=== PATIENT | female | born 1955 | race Caucasian/White ===

== ENCOUNTER → 2016-11-26 | Outpatient (CLI) | payer OTHER ==
[~2016-11-26] MED LIST: BARIUM SULFATE 60% 355 ML SUSP PO ONE; BARIUM SULFATE 98% 135 ML SUSP PO ONE
--- NOTE | 2016-11-26 12:02 | RAD ---
Indication right upper quadrant pain for several months. In anticipation of an upper GI and small bowel follow-through a preliminary film of the abdomen was obtained. Clips are seen in the gallbladder fossa. The abdominal gas pattern is normal. Postoperative changes in the lower lumbar spine are noted. The patient reports a history of gastric bypass. A limited amount of fizzy material was administered. The examination was performed in double contrast flexion. 10 spot fluoroscopic images were obtained. Fluoroscopy time associated with the examination was 2.2 minutes. The initiation of swallowing was normal. No esophageal strictures, erosions or mucosal abnormalities are seen. Gastrojejunostomy is noted and is widely patent. Jejunal loops appeared normal. Ileal loops also appeared normal. Transit time to the large bowel was relatively fast high, i.e. aproximately 15 minutes IMPRESSION: Gastrojejunostomy. No definite abnormality seen. Relatively rapid transit noted to the large bowel
== END | disposition home or self-care (01) ==
LOC: DXRAD 08:28
PROVIDERS: ATTEND Internal Medicine Gastroenterology
DX: R10.11 Right upper quadrant pain (principal)
CPT/HCPCS: 74249

== ENCOUNTER → 2017-10-21 | Outpatient (CLI) | payer MEDICARE ==
--- NOTE | 2017-10-23 15:08 | RAD ---
DATE: 10/21/2017 EXAM: MAMMO RIC SCREENING BILATERAL HISTORY: Screening Mammogram COMPARISON: Outside screening mammogram 10/15/2015, 04/21/2013 This study was interpreted with the benefit of Computerized Aided Detection (CAD). The breast parenchyma shows scattered fibroglandular densities. Breast parenchyma level B. FINDINGS: Bilateral digital 2-D and 3-D tomosynthesis CC and MLO views. There are 2 adjacent groups of microcalcifications in the superior left breast, middle depth at the 12:00 and 1:00 positions. There is a stable circumscribed mass in the lower outer right breast since 2011, consider benign. No suspicious mass, calcification or architectural distortion in the right breast. IMPRESSION: Slight increase in two groups of microcalcifications in the superior left breast. Diagnostic left breast mammogram to include magnification CC and MLO views and true ML view. BI-RADS CATEGORY: 0 INCOMPLETE: NEEDS ADDITIONAL IMAGING EVALUATION AND/OR PRIOR MAMMOGRAMS FOR COMPARISON. RECOMMENDED FOLLOW-UP: ADD ADDITIONAL IMAGING PQRS compliance statement: Patient information was entered into a reminder system with a target due date for the next mammogram. Mammography is a sensitive method for finding small breast cancers, but it does not detect them all and is not a substitute for careful clinical examination. A negative mammogram does not negate a clinically suspicious finding and should not result in delay in biopsying a clinically suspicious abnormality. "Our facility is accredited by the [employer] Mammography Program."
== END | disposition home or self-care (01) ==
LOC: MAMMO 12:39
PROVIDERS: ATTEND Family Medicine
DX: Z12.31 Encounter for screening mammogram for malignant neoplasm of breast (principal)
CPT/HCPCS: 77063; 77067

== ENCOUNTER → 2017-11-02 | Outpatient (CLI) | payer MEDICARE ==
--- NOTE | 2017-11-02 14:21 | RAD ---
DATE: 11/02/2017 EXAM: DIGITAL SCREEN LT W/CAD HISTORY: Microcalcifications left breast COMPARISON: 10/15/2015 This study was interpreted with the benefit of Computerized Aided Detection (CAD). FINDINGS: Breast Density: HETERO The breast parenchyma Is heterogeneouslyy dense, which could reduce sensitivity of mammography. Breast parenchyma level C. Tiny foci of microcalcification is identified in the left breast grossly more or less similar to prior exam of 2016.. IMPRESSION: Probably benign findings. Recommend left breast diagnostic mammogram in 6 months BI-RADS CATEGORY: 3 PROBABLE BENIGN-SHORT TERM F/U RECOMMENDED FOLLOW-UP: 6M 6 MONTH FOLLOW-UP PQRS compliance statement: Patient information was entered into a reminder system with a target due date 05/02/2019 for the next mammogram. Mammography is a sensitive method for finding small breast cancers, but it does not detect them all and is not a substitute for careful clinical examination. A negative mammogram does not negate a clinically suspicious finding and should not result in delay in biopsying a clinically suspicious abnormality. "Our facility is accredited by the [employer] Mammography Program."
== END | disposition home or self-care (01) ==
LOC: MAMMO 13:50
PROVIDERS: ATTEND Family Medicine
DX: Z12.31 Encounter for screening mammogram for malignant neoplasm of breast (principal); R92.8 Other abnormal and inconclusive findings on diagnostic imaging of breast
CPT/HCPCS: 77067

== ENCOUNTER → 2017-11-02 | Outpatient (CLI) | payer MEDICARE ==
--- NOTE | 2017-11-02 13:03 | RAD ---
Examination: 3 views of the left knee History: History of left knee pain Comparison: None available Findings: The alignment of the knee joint grossly appears unremarkable. There is moderate joint space loss identified in the medial, lateral, patellofemoral compartments. There is no acute fracture or dislocation identified. Impression: Moderate tricompartmental degenerative changes.
--- NOTE | 2017-11-02 13:21 | RAD ---
Pelvis with left hip, 3 views, 11/02/2017: History: Left hip pain, osteoarthritis The hip joint space are well preserved with only mild marginal spurring. No fracture or dislocation is identified. There is minimal spurring at the symphysis pubis. Surgical sutures are present in the pelvis bilaterally. There appear to be laminectomy changes in the lower lumbar spine. IMPRESSION: No acute pelvic or left hip abnormality is detected.
== END | disposition home or self-care (01) ==
LOC: DXRAD 11:48
PROVIDERS: ATTEND Orthopaedic Surgery Sports Medicine
DX: M17.12 Unilateral primary osteoarthritis, left knee (principal); M16.12 Unilateral primary osteoarthritis, left hip
CPT/HCPCS: 73502; 73562

== ENCOUNTER 2018-01-16 01:01 | Emergency (ER) | payer MEDICARE ==
[~2018-01-16] VITALS: Ht 160 cm; Wt 59.4 kg
[2018-01-16] MEDS: IV NORMAL SALINE 1,000ML 1,000 ML IV SCH ×2 (02:15→02:59)
[2018-01-16 02:20] LABS: WHITE BLOOD COUNT 6.1 x10^3/uL (4.0-11.0)
[2018-01-16 02:21] LABS: LYMPH # 1.8 x10^3/uL (1.0-4.8); LYMPH % 30 % (24-48); MONO % 5 % (0-9); NEUT % 65 % (31-73)
[2018-01-16 02:22] LABS: HEMATOCRIT 28.1 % (36.0-47.0); HEMOGLOBIN 9.1 g/dL (12.0-15.5); MEAN CORPUSCULAR HEMOGLOBIN 32 pg (25-35); MEAN CORPUSCULAR HGB CONC 33 g/dL (31-37); MEAN CORPUSCULAR VOLUME 97 fL (79-100); MONO # 0.3 x10^3/uL (0.0-1.1); NEUT # 3.9 x10^3uL (1.8-7.7); PLATELET COUNT 214 x10^3/uL (140-400); RED BLOOD COUNT 2.89 x10^6/uL (3.50-5.40); RED CELL DISTRIBUTION WIDTH 13.7 % (11.5-14.5)
[2018-01-16 02:24] LABS: CREATININE 0.9 mg/dL (0.6-1.0); GFR 63.2; POTASSIUM 4.1 mmol/L (3.5-5.1)
[2018-01-16] MEDS ORDERED: PANTOPRAZOLE IV 40 MG VIAL. ONE (02:55)
[2018-01-16] MEDS ORDERED: IV NORMAL SALINE 1,000ML 1,000 ML IV ONE ×2 (03:00→05:00)
[2018-01-16] MEDS ORDERED: PANTOPRAZOLE IV 40 MG VIAL. IVP ONE (03:15)
--- NOTE | 2018-01-16 03:22 | PHYS DOC ---
Adult General Chief Complaint Chief Complaint: RECTAL BLEED HPI HPI 62-year-old female with a history of anxiety and depression as well as irritable bowel syndrome and gastric bypass about 2 years ago. She now presents the emergency department complaining of dark red blood per rectum this evening. Patient describes the she experienced multiple episodes of loose stool which are dark red. She feels lightheaded and her states she looks pale compared with her baseline. Patient has no history of coagulopathy nor does she take anticoagulants. She has never had an upper or lower GI bleed before nor has she had an upper GI scope or colonoscopy. Patient denies chest pain or shortness of breath but she does describe that she felt lightheaded with standing and feels generally weak. Patient does not take NSAIDs or aspirin and has never been known to have peptic ulcer Review of Systems Review of Systems Constitutional: Denies fever or chills [] Eyes: Denies change in visual acuity, redness, or eye pain [] HENT: Denies nasal congestion or sore throat [] Respiratory: Denies cough or shortness of breath [] Cardiovascular: No additional information not addressed in HPI [] GI: Denies abdominal pain, nausea, vomiting, bloody stools or diarrhea [] : Denies dysuria or hematuria [] Musculoskeletal: Denies back pain or joint pain [] Integument: Denies rash or skin lesions [] Neurologic: Denies headache, focal weakness or sensory changes [] Endocrine: Denies polyuria or polydipsia [] All other systems were reviewed and found to be within normal limits, except as documented in this note. Current Medications Current Medications Current Medications Medications (Trade) Dose Ordered Sig/Carlos Start Time Stop Time Status Last Admin Dose Admin Pantoprazole Sodium (Protonix Vial) 40 mg STK-MED ONCE 01/16/18 02:55 01/16/18 02:56 DC Sodium Chloride 1,000 ml @ 1,000 mls/hr 1X ONCE 01/16/18 03:00 01/16/18 03:59 Allergies Allergies Allergies Coded Allergies Type Severity Reaction Last Updated Verified Penicillins Allergy Intermediate 01/16/18 Yes codeine Allergy Unknown 01/16/18 Yes Uncoded Allergies Type Severity Reaction Last Updated Verified dexatrol Allergy Unknown 01/16/18 Physical Exam Physical Exam Constitutional: Pale appearing 62-year-old female alert to be indicative cooperative and appropriate no acute distress. Her mucous membranes are moist. She has no tachycardia or hypotension. Clear lungs regular rate and rhythm. Benign abdomen with no focal tenderness mass distention megaly or skin changes. Normal bowel sounds. Extremities unremarkable with good cap refill. Patient does have subconjunctival pallor as well. HENT: Normocephalic, atraumatic, bilateral external ears normal, oropharynx moist, no oral exudates, nose normal. [] Eyes: PERRLA, EOMI, conjunctiva pale, no discharge. [] Neck: Normal range of motion, no tenderness, supple, no stridor. [] Cardiovascular:Heart rate regular rhythm, no murmur [] Lungs & Thorax: Bilateral breath sounds clear to auscultation [] Abdomen: Bowel sounds normal, soft, no tenderness, no masses, no pulsatile masses. [] Skin: Pale, Warm, dry, no erythema, no rash. [] Back: No tenderness, no CVA tenderness. [] Extremities: No tenderness, no cyanosis, no clubbing, ROM intact, no edema. [] Neurologic: Alert and oriented X 3, normal motor function, normal sensory function, no focal deficits noted. [] Psychologic: Patient has a mildly depressed mood and flat affect Current Patient Data Lab Results Laboratory Tests Test 01/16/18 01:45 White Blood Count 6.1 x10^3/uL (4.0-11.0) Red Blood Count 2.89 x10^6/uL (3.50-5.40) L Hemoglobin 9.1 g/dL (12.0-15.5) L Hematocrit 28.1 % (36.0-47.0) L Mean Corpuscular Volume 97 fL (79-100) Mean Corpuscular Hemoglobin 32 pg (25-35) Mean Corpuscular Hemoglobin Concent 33 g/dL (31-37) Red Cell Distribution Width 13.7 % (11.5-14.5) Platelet Count 214 x10^3/uL (140-400) Neutrophils (%) (Auto) 65 % (31-73) Lymphocytes (%) (Auto) 30 % (24-48) Monocytes (%) (Auto) 5 % (0-9) Neutrophils # (Auto) 3.9 x10^3uL (1.8-7.7) Lymphocytes # (Auto) 1.8 x10^3/uL (1.0-4.8) Monocytes # (Auto) 0.3 x10^3/uL (0.0-1.1) Prothrombin Time 10.5 SEC (9.4-11.4) Prothrombin Time INR 1.0 (0.9-1.1) PTT 22 SEC (23-33) L Sodium Level 142 mmol/L (136-145) Potassium Level 4.1 mmol/L (3.5-5.1) Chloride Level 105 mmol/L (98-107) Carbon Dioxide Level 28 mmol/L (21-32) Anion Gap 9 (6-14) Blood Urea Nitrogen 27 mg/dL (7-20) H Creatinine 0.9 mg/dL (0.6-1.0) Estimated GFR (Cockcroft-Gault) 63.2 Glucose Level 175 mg/dL (70-99) H Calcium Level 8.0 mg/dL (8.5-10.1) L EKG EKG [] Radiology/Procedures Radiology/Procedures Critical care 38 minutes Critical Care: The high probability of sudden, clinically significant deterioration in the patient's condition required the highest level of my preparedness to intervene urgently. The services I provided to this patient were to treat and/or prevent clinically significant deterioration. Services included the following: chart data review, reviewing nursing notes and/or old charts, documentation time, software developer consultant collaboration regarding findings and treatment options, medication orders and management, direct patient care, vital sign assessments and ordering, interpreting and reviewing diagnostic studies/ lab tests. Aggregate critical care time includes only time during which I was engaged in work directly related to the patient's care, as described above, whether at the bedside or elsewhere in the Emergency Department. It did not include time spent performing other reported procedures or the services of nurses or physician assistants.[] Course & Med Decision Making Course & Med Decision Making Pertinent Labs and Imaging studies reviewed. (See chart for details) Signs and symptoms consistent with GI bleed with anemia and pallor. Patient is hemodynamically stable with no tachycardia or hypotension. Patient is not on a beta marc. 2 large-bore IVs established and patient given 2 L of normal saline IV fluid bolus. Blood draw prior to hydration with hemoglobin of 9.1. Anticipate equilibration and worsening anemia with adequate mandaeism of volume. Case discussed with patient's primary care physician Dr. Kincaid who is aware the history and findings and requests transfer to [facility] for admission to the hospitalist service. Case discussed with Dr. May, hospitalist on-call at [place], who accepts the patient for inpatient admission to a telemetry bed to her service. She will address continued care, further treatment, and consultative services as needed Dragon Disclaimer Dragon Disclaimer This electronic medical record was generated, in whole or in part, using a voice recognition dictation system. Departure Departure: Impression: Primary Impression: GI bleeding Additional Impression: Anemia Disposition: XFER SHT-COUNTS INCLUDE 234 BEDS AT THE [facility] Condition: GUARDED Referrals: TOÑO KINCAID MD (PCP) Problem Qualifiers KELY BE MD January 16, 2018 03:22
[2018-01-16] MEDS ORDERED: PENICILLIN V K 250 MG TABLET. ONE (03:32)
[2018-01-16] MEDS ORDERED: PENICILLIN V K 250 MG TABLET. PO ONE (04:00)
[2018-01-16 04:16] LABS: HEMOGLOBIN ISTAT 7.5 gm/dL; POTASSIUM ISTAT 4.9 mmol/L (3.5-5.0)
[2018-01-16 04:25] VITALS: BP 112/68
[2018-01-16] MEDS ORDERED: ONDANSETRON ODT 4 MG TAB.RAPDIS PO ONE (05:00)
[2018-01-16 06:03] LABS: % BANDS 1 % (0-9); % BASOS 0 % (0-3); % EOS 3 % (0-5); % LYMPHS 27 % (24-48); % MONOS 7 % (0-10); % SEGS 62 % (35-66)
[2018-01-16 06:04] LABS: PLT ESTIMATE ADEQUATE (ADEQUATE)
== END 2018-01-16 04:38 | disposition short-term general hospital (02) ==
LOC: ER 01:01
DX: K92.2 Gastrointestinal hemorrhage, unspecified (principal); D64.9 Anemia, unspecified; F32.9 Major depressive disorder, single episode, unspecified; K58.9 Irritable bowel syndrome, unspecified; F41.9 Anxiety disorder, unspecified; Z98.84 Bariatric surgery status; Z88.0 Allergy status to penicillin; Z88.5 Allergy status to narcotic agent
CPT/HCPCS: 36415; 80047; 80048; 85007; 85025; 85610; 85730; 86900; 86901; 96374; 99291; C9113; J7030

== ENCOUNTER → 2018-01-29 | Outpatient (CLI) | payer MEDICARE ==
[2018-01-16 04:25] VITALS: BP 112/68
[~2018-01-29] MED LIST changes: -BARIUM SULFATE 60% 355 ML SUSP PO ONE; -BARIUM SULFATE 98% 135 ML SUSP PO ONE; +IOHEXOL 240 MG/ML 50ML VIAL. ONE; +IOHEXOL 300 MG/ML 75 ML VIAL. IV ONE
--- NOTE | 2018-01-29 14:11 | RAD ---
CT Abdomen and Pelvis With Intravenous Contrast: History: Episode 2 weeks ago of rectal bleeding for 7 days. Comparison: CT abdomen pelvis November 11, 2016. Technique: After administration of oral and intravenous contrast, 75 mL Omnipaque-300, CT of the abdomen and pelvis was performed. Exposure: One or more of the following individualized dose reduction techniques were utilized for this examination: 1. Automated exposure control 2. Adjustment of the mA and/or kV according to patient size 3. Use of iterative reconstruction technique Findings: Left hepatic lobe demonstrates cyst measuring 1.4 cm. Calcified splenic granulomata are present. Pancreas and bilateral adrenal glands are unremarkable. Moderate intrahepatic and extrahepatic biliary dilatation is thought to be reservoir effect from patient's cholecystectomy; this is without significant change from previous study. Common bile duct has diameter of 9 mm. Aortic atherosclerosis is seen. Bilateral kidneys enhance symmetrically. No bowel obstruction or inflammation is appreciated. Urinary bladder demonstrates a small focus of intraluminal gas. Uterus is absent. No free air free fluid is seen in the abdomen or pelvis. Moderate colonic stool is seen. Degenerative changes are present in the spine. L3-5 laminectomy changes are seen. There is grade 1 spondylolisthesis at L3-4. Impression: 1. No acute abnormality identified in the abdomen or pelvis. No evidence of bowel inflammation or obstruction. 2. A small nonspecific focus of gas is seen involving the urinary bladder. This could be from recent catheterization if appropriate history. If not appropriate history, then gas-forming urinary tract infection is possible. Recommend clinical correlation. Electronically signed by: Carlos Cazares MD (01/29/2018 2:08 PM) [facility]
== END | disposition home or self-care (01) ==
LOC: CT 11:57
PROVIDERS: ATTEND Family Medicine
DX: K62.5 Hemorrhage of anus and rectum (principal); M43.16 Spondylolisthesis, lumbar region
CPT/HCPCS: 74177; Q9966; Q9967

== ENCOUNTER → 2018-05-03 | Outpatient (CLI) | payer MEDICARE ==
--- NOTE | 2018-05-03 14:56 | RAD ---
DATE: 05/03/2018 EXAM: MAMMO RIC CASSANDRAG LT, BREAST LEFT HISTORY: Follow-up microcalcifications COMPARISON: 11/02/2017, 10/21/2017, 10/15/2015 This study was interpreted with the benefit of Computerized Aided Detection (CAD). The breast parenchyma shows scattered fibroglandular densities. Breast parenchyma level B. FINDINGS: 2-D and 3-D tomosynthesis imaging was performed in CC and MLO projections. There are scattered microcalcifications in the left breast. There is unchanged clustering of microcalcifications at the 12:00 location. A similar appearance was present on the previous studies. There appears to be slight architectural distortion more posteriorly in the left breast at the 12:00 location as best seen on the CC ric image #17. This is not clearly demonstrated in the MLO projection. Right breast ultrasound, 05/03/2018: A targeted ultrasound exam of the right breast was performed in the area of possible architectural distortion noted on the mammograms. Heterogeneous fibroglandular shadows are evident. No mass or abnormal fluid collection is seen. There is no sonographic correlate for the mammographic finding. IMPRESSION: 1. Stable right breast microcalcifications. 2. Slight right breast architectural distortion appears unchanged with no sonographic correlate evident. 3. Follow-up bilateral mammography in 6 months is suggested. Breast MRI could also be considered for further evaluation. BI-RADS CATEGORY: 3 PROBABLY BENIGN FINDING(S)-SHORT INTERVAL FOLLOW-UP SUGGESTED RECOMMENDED FOLLOW-UP: 6M 6 MONTH FOLLOW-UP PQRS compliance statement: Patient information was entered into a reminder system with a target due date for the next mammogram. Mammography is a sensitive method for finding small breast cancers, but it does not detect them all and is not a substitute for careful clinical examination. A negative mammogram does not negate a clinically suspicious finding and should not result in delay in biopsying a clinically suspicious abnormality. "Our facility is accredited by the [employer] Mammography Program."
== END | disposition home or self-care (01) ==
LOC: MAMMO 10:28
PROVIDERS: ATTEND Family Medicine
DX: R92.0 Mammographic microcalcification found on diagnostic imaging of breast (principal); M17.12 Unilateral primary osteoarthritis, left knee; M16.12 Unilateral primary osteoarthritis, left hip; Z86.2 Personal history of diseases of the blood and blood-forming organs and certain disorders involving the immune mechanism; Z88.0 Allergy status to penicillin; Z88.5 Allergy status to narcotic agent
CPT/HCPCS: 76641; 77065; G0279; 77061

== ENCOUNTER → 2019-07-19 | Day surgery (SDC) | payer MEDICARE, MEDICAID ==
[~2019-07-19] MED LIST changes: +ACETAMINOPHEN 325 MG TABLET PO PRN; +ALBUTEROL SULFATE 2.5 MG/3 ML NEBU. NEB PRN; +ARIP20TA5 PO; +ATROPINE 0.5 MG/5 ML DISP.SYRIN. IV PRN; +BUPR300T4 PO; +CITA40TA12 PO; +CLON0.5T4 PO; +FLUC100T4 PO; +FLUT9.9S NS; -IOHEXOL 240 MG/ML 50ML VIAL. ONE; -IOHEXOL 300 MG/ML 75 ML VIAL. IV ONE; +IV RINGERS SOLUTION,LACTATED 1,000 ML IV SCH; +LEVO175T5 PO; +MIDAZOLAM HCL PF 2 MG/2 ML VIAL. IV PRN; +ONDANSETRON PF 4 MG/2 ML VIAL. IV PRN; +PHENOL ORAL SPRAY 177ML BOTTLE. MM PRN; +PROPOFOL 20 ML IV ONE; +ROPI0.254 PO; +SUCR1TAB PO; +TRAM50TA PO; +diphenhydrAMINE 50 MG/ML VIAL IV PRN
[2019-07-19 14:11] VITALS: BP 139/79
== END ==
LOC: SURG 11:30
PROVIDERS: ATTEND Internal Medicine Gastroenterology
DX: R19.5 Other fecal abnormalities (principal); Z90.710 Acquired absence of both cervix and uterus; Z98.890 Other specified postprocedural states; Z88.6 Allergy status to analgesic agent; Z88.5 Allergy status to narcotic agent; Z88.8 Allergy status to other drugs, medicaments and biological substances
CPT/HCPCS: 45378; J2704; J7120

== ENCOUNTER 2020-07-30 12:14 | Emergency (ER) | payer MEDICARE, MEDICAID ==
[~2020-07-30] VITALS: Ht 160 cm; Wt 60.0 kg
[~2020-07-30 12:14] MED LIST changes: -ACETAMINOPHEN 325 MG TABLET PO PRN; -ALBUTEROL SULFATE 2.5 MG/3 ML NEBU. NEB PRN; -ATROPINE 0.5 MG/5 ML DISP.SYRIN. IV PRN; -BUPR300T4 PO; +BUPR300T92 PO; -IV RINGERS SOLUTION,LACTATED 1,000 ML IV SCH; -MIDAZOLAM HCL PF 2 MG/2 ML VIAL. IV PRN; -ONDANSETRON PF 4 MG/2 ML VIAL. IV PRN; -PHENOL ORAL SPRAY 177ML BOTTLE. MM PRN; -PROPOFOL 20 ML IV ONE; -diphenhydrAMINE 50 MG/ML VIAL IV PRN
--- NOTE | 2020-07-30 12:47 | PHYS DOC ---
Past History Past Medical History: Gallstones, Hypothyroid, IBS, Other Past Surgical History: Appendectomy, Cholecystectomy, Hysterectomy, Tonsillectomy, Other Alcohol Use: Occasionally Drug Use: None General Adult EDM: Chief Complaint: ABNORMAL LABS HPI: HPI: Patient is a 65-year-old female who presents with generalized weakness, fatigue and some dizziness with shortness of breath. Patient also has felt very cold recently. Patient had a virtual visit with her talent coordinator today who thought she was pale and should come in for evaluation. Over the last 2 weeks patient has had some dark-colored stools have been loose. Patient had a history of GI bleeds in the past. Patient denies any anticoagulants or NSAIDs at this time. Patient had a hemoglobin of 10.3 done 2 weeks ago. Patient denies any specific pain at this time. Review of Systems: Review of Systems: Constitutional: Denies fever or chills but patient has had fatigue Eyes: Denies change in visual acuity HENT: Denies nasal congestion or sore throat Respiratory: Denies cough has had some mild shortness of breath Cardiovascular: Denies chest pain or edema GI: Denies abdominal pain, nausea, vomiting, but has had dark loose stools : Denies dysuria Musculoskeletal: Denies back pain or joint pain Integument: Denies rash Neurologic: Denies headache, focal weakness or sensory changes patient had dizziness Endocrine: Denies polyuria or polydipsia Lymphatic: Denies swollen glands Psychiatric: Denies depression or anxiety Current Medications: Current Meds: Active Scripts Active Reported Levothyroxine Sodium 175 Mcg Tablet 1 Tab PO DAILY Bupropion Xl (Bupropion Hcl) 300 Mg Tab.er.24h 1 Tab PO DAILYWBKFT Fluconazole 100 Mg Tablet 1 Tab PO DAILY Abilify (Aripiprazole) 20 Mg Tablet 1 Tab PO DAILYWBKFT 30 Days Celexa (Citalopram Hydrobromide) 40 Mg Tablet 40 Mg PO DAILY Tramadol Hcl (Tramadol HCl) 50 Mg Tablet 50 Mg PO PRN Q6HRS PRN Flonase Allergy Relief (Fluticasone Propionate) 9.9 Ml [place].susp 2 Sprays NS DAILY Sucralfate 1 Gm Tablet 1 Tab PO QID Ropinirole Hcl 0.25 Mg Tablet 0.25 Mg PO HS Clonazepam 0.5 Mg Tablet 1 Tab PO TID Allergies: Allergies: Allergies Coded Allergies Type Severity Reaction Last Updated Verified codeine Allergy Unknown 07/30/20 Yes morphine Allergy Unknown 07/30/20 Yes Uncoded Allergies Type Severity Reaction Last Updated Verified dexatrol Allergy Unknown 01/16/18 Physical Exam: PE: Constitutional: Well developed, well nourished, no acute distress, non-toxic appearance. [] HENT: No trismus, mucous membranes moist, pale lips Eyes: PERRLA, EOMI, pale conjunctiva Neck: Normal range of motion, no tenderness, supple, no stridor. [] Cardiovascular:Heart rate regular rhythm, peripheral pulse intact cap refill is brisk Lungs & Thorax: Bilateral breath sounds clear, no respiratory distress Abdomen: Bowel sounds normal, soft, no tenderness, no masses, no pulsatile masses. [] Rectal exam: Physician Relations Manager present empty rectal vault Skin: Warm, dry, no erythema, no rash. [] Very pale Back: No tenderness, no CVA tenderness. [] Extremities: No tenderness, no cyanosis, no clubbing, ROM intact, no edema. [] Neurologic: Alert and oriented X 3, normal motor function, normal sensory function, no focal deficits noted. [] Psychologic: Affect normal, judgement normal, mood normal. [] Current Patient Data: Labs: Laboratory Tests Test 07/30/20 12:50 07/30/20 13:48 White Blood Count 5.8 x10^3/uL Red Blood Count 3.81 x10^6/uL Hemoglobin 10.7 g/dL Hematocrit 33.5 % Mean Corpuscular Volume 88 fL Mean Corpuscular Hemoglobin 28 pg Mean Corpuscular Hemoglobin Concent 32 g/dL Red Cell Distribution Width 16.6 % Platelet Count 284 x10^3/uL Neutrophils (%) (Auto) 46 % Lymphocytes (%) (Auto) 39 % Monocytes (%) (Auto) 11 % Eosinophils (%) (Auto) 3 % Basophils (%) (Auto) 1 % Neutrophils # (Auto) 2.6 x10^3uL Lymphocytes # (Auto) 2.3 x10^3/uL Monocytes # (Auto) 0.6 x10^3/uL Eosinophils # (Auto) 0.2 x10^3/uL Basophils # (Auto) 0.1 x10^3/uL Sodium Level 140 mmol/L Potassium Level 4.3 mmol/L Chloride Level 101 mmol/L Carbon Dioxide Level 33 mmol/L Anion Gap 6 Blood Urea Nitrogen 8 mg/dL Creatinine 0.9 mg/dL Estimated GFR (Cockcroft-Gault) 62.6 BUN/Creatinine Ratio 9 Glucose Level 99 mg/dL Calcium Level 9.1 mg/dL Total Bilirubin 0.3 mg/dL Aspartate Amino Transf (AST/SGOT) 21 U/L Alanine Aminotransferase (ALT/SGPT) 26 U/L Alkaline Phosphatase 65 U/L Total Protein 6.7 g/dL Albumin 3.5 g/dL Albumin/Globulin Ratio 1.1 Lipase 156 U/L Urine Collection Type Unknown Urine Color Yellow Urine Clarity Clear Urine pH 7.0 Urine Specific [place] 1.015 Urine Protein Neg Urine Glucose (UA) Neg mg/dL Urine Ketones (Stick) Neg mg/dL Urine Blood Neg Urine Nitrite Neg Urine Bilirubin Neg Urine Urobilinogen Dipstick 0.2 mg/dL Urine Leukocyte Esterase Neg Urine RBC 0 /HPF Urine WBC Rare /HPF Urine Squamous Epithelial Cells Occ /LPF Urine Bacteria 0 /HPF Vital Signs: Vital Signs Date Time Temp Pulse Resp B/P (MAP) Pulse Ox O2 Delivery O2 Flow Rate FiO2 07/30/20 13:31 64 18 123/73 (90) 96 Room Air 07/30/20 12:43 98.3 EKG: EKG: EKG interpreted by me normal sinus rhythm rate 65 normal axis normal intervals normal ST segments [] Radiology/Procedures: Radiology/Procedures: [][address] [address] IMAGING REPORT Signed PATIENT: JUSTIN FLORES ACCOUNT: [id number] : 1955 LOCATION: ER AGE: 65 SEX: F EXAM STATUS: REG ER ORD. PHYSICIAN: ELSIE HOOVER MD REASON: soa PROCEDURE: PORTABLE CHEST 1V EXAM: PORTABLE CHEST 1V 07/30/2020 12:48 PM CLINICAL INDICATION: Shortness of breath COMPARISON: None TECHNIQUE: AP upright view of the chest FINDINGS: The heart and mediastinum are normal. Lungs are well-expanded. There are calcified granulomas in the left lung. No consolidation, pleural effusion, or pneumothorax. Pulmonary vascularity is normal. The thoracic skeleton is intact. IMPRESSION: No acute cardiopulmonary abnormality. Electronically signed by: Corry Cannon MD (07/30/2020 1:16 PM) [id number] DICTATED AND SIGNED BY: CORRY CANNON MD DATE: 07/30/20 3992 CC: ELSIE HOOVER MD; TOÑO NEAL MD ~MTH0 0 Heart Score: Risk Factors: Risk Factors: DM, Current or recent (<one month) smoker, HTN, HLP, family history of CAD, obesity. Risk Scores: Score 0 - 3: 2.5% MACE over next 6 weeks - Discharge Home Score 4 - 6: 20.3% MACE over next 6 weeks - Admit for Clinical Observation Score 7 - 10: 72.7% MACE over next 6 weeks - Early Invasive Strategies Course & Med Decision Making: Course & Med Decision Making Pertinent Labs and Imaging studies reviewed. (See chart for details) [] 65-year-old female presents with some fatigue and cold intolerance and was told she looked pale by her talent coordinator. Patient's hemoglobin is stable from 2 weeks ago. Patient's rest of her lab work-up is reassuring. Patient's EKG and chest x-ray are unremarkable. No evidence of a urinary tract infection. Discussed with patient need for follow-up with her primary care physician for further evaluation treatment. Patient had a rectal exam done here there is no stool therefore a occult blood could not be performed. Dragon Disclaimer: Dragsean Disclaimer: This electronic medical record was generated, in whole or in part, using a voice recognition dictation system. Departure Departure: Impression: Primary Impression: Generalized weakness Additional Impression: Anemia Disposition: 01 DC HOME SELF CARE/HOMELESS Condition: STABLE Referrals: TOÑO NEAL MD (PCP) 2-3 days Patient Instructions: Anemia, FAQs, Weakness Additional Instructions: EMERGENCY DEPARTMENT GENERAL DISCHARGE INSTRUCTIONS THANK YOU for coming to [facility] Emergency Department (ED) today and trusting us with your care. We trust that you had a positive experience in our Emergency Department. If you wish to speak to the department Management you can contact the emergency department at YOUR FOLLOW UP INSTRUCTIONS ARE FOLLOWS: Do you have a private doctor? If you do not have a private doctor, please ask for a resource list of physicians or clinics that may be able to assist you with follow up care. The Emergency Physician has interpreted your x-rays. The X-ray specialist will also review them. If there is a change in the findings you will be notified in 48 hours when at all possible. A lab test or lab culture may have been done, your results will be reviewed and you will be notified if you need a change in treatment. ADDITIONAL INSTRUCTIONS AND INFORMATION Your care today has been supervised by a physician who is specially trained in emergency care. Many problems require more than one evaluation for a complete diagnosis and treatment. We recommend that you schedule your follow up appointment as recommended to ensure complete treatment of your illness or injury. If you are unable to obtain follow up care and continue to have a problem, or if your condition worsens we recommend that you return to the ED. We are not able to safely determine your condition over the phone nor are we able to give sound medical advice over the phone. For these safety reasons, if you call for medical advice we will ask you to come to the ED for further evaluation If you have any questions regarding these discharge instructions please call the ED at SAFETY INFORMATION In the interest of safety, wellness, and injury prevention; we encourage you to wear your seatbelt, if you smoke; quit smoking, and we encourage your family to use protective helmet for bicycling and other sporting events that present an increased risk for head injury. IF YOUR SYMPTOMS WORSEN OR NEW SYMPTOMS DEVELOP, OR YOU HAVE CONCERNS ABOUT YOUR CONDITION; OR IF YOUR CONDITION WORSENS WHILE YOU ARE WAITING FOR YOUR FOLLOW UP APPOINTMENT; EITHER CONTACT YOUR PRIMARY CARE DOCTOR, THE PHYSICIAN WHOSE NAME AND NUMBER YOU WERE GIVEN, OR RETURN TO THE ED IMMEDIATELY. ELSIE HOOVER MD Jul 30, 2020 12:47
--- NOTE | 2020-07-30 12:59 | EKG ---
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
--- NOTE | 2020-07-30 13:19 | RAD ---
EXAM: PORTABLE CHEST 1V 07/30/2020 12:48 PM CLINICAL INDICATION: Shortness of breath COMPARISON: None TECHNIQUE: AP upright view of the chest FINDINGS: The heart and mediastinum are normal. Lungs are well-expanded. There are calcified granulomas in the left lung. No consolidation, pleural effusion, or pneumothorax. Pulmonary vascularity is normal. The thoracic skeleton is intact. IMPRESSION: No acute cardiopulmonary abnormality. Electronically signed by: Corry Cannon MD (07/30/2020 1:16 PM) [id number]
[2020-07-30 13:26] LABS: BASO # 0.1 x10^3/uL (0.0-0.2); BASO % 1 % (0-3); EOS # 0.2 x10^3/uL (0.0-0.7); EOS % 3 % (0-3); HEMATOCRIT 33.5 % (36.0-47.0); HEMOGLOBIN 10.7 g/dL (12.0-15.5); LYMPH # 2.3 x10^3/uL (1.0-4.8); LYMPH % 39 % (24-48); MEAN CORPUSCULAR HEMOGLOBIN 28 pg (25-35); MEAN CORPUSCULAR HGB CONC 32 g/dL (31-37); MEAN CORPUSCULAR VOLUME 88 fL (79-100); MONO # 0.6 x10^3/uL (0.0-1.1); MONO % 11 % (0-9); NEUT # 2.6 x10^3uL (1.8-7.7); NEUT % 46 % (31-73); PLATELET COUNT 284 x10^3/uL (140-400); RED BLOOD COUNT 3.81 x10^6/uL (3.50-5.40); RED CELL DISTRIBUTION WIDTH 16.6 % (11.5-14.5); WHITE BLOOD COUNT 5.8 x10^3/uL (4.0-11.0)
[2020-07-30 13:31] VITALS: BP 123/73
[2020-07-30 13:37] LABS: CALCIUM 9.1 mg/dL (8.5-10.1); CREATININE 0.9 mg/dL (0.6-1.0); GFR 62.6; POTASSIUM 4.3 mmol/L (3.5-5.1)
[2020-07-30 13:48] LABS: ALBUMIN 3.5 g/dL (3.4-5.0); ALBUMIN/GLOBULIN RATIO 1.1 (1.0-1.7); TOTAL BILIRUBIN 0.3 mg/dL (0.2-1.0); TOTAL PROTEIN 6.7 g/dL (6.4-8.2)
[2020-07-30 14:36] LABS: BACTERIA,URINE 0 /HPF (0-FEW); BILIRUBIN,URINE NEG (NEG); CLARITY,URINE CLEAR; COLOR,URINE YELLOW; GLUCOSE,URINE NEG (NEG); NITRITE,URINE NEG (NEG); RBC,URINE 0 /HPF (0-2); UROBILINOGEN,URINE 0.2 mg/dL (0.2 mg/dL); WBC,URINE RARE /HPF (0-4)
[2020-07-30 14:37] LABS: SQUAMOUS EPITHELIAL CELL,UR OCC /LPF
== END 2020-07-30 14:54 | disposition home or self-care (01) ==
LOC: ER 12:14
DX: D64.9 Anemia, unspecified (principal); R53.1 Weakness; R19.7 Diarrhea, unspecified; E03.9 Hypothyroidism, unspecified; K58.9 Irritable bowel syndrome, unspecified; Z90.89 Acquired absence of other organs; Z90.49 Acquired absence of other specified parts of digestive tract; Z90.710 Acquired absence of both cervix and uterus; Z88.5 Allergy status to narcotic agent
CPT/HCPCS: 36415; 71045; 80053; 81001; 83690; 85025; 86850; 86900; 86901; 93005; 99285

== ENCOUNTER → 2020-08-13 | Outpatient (CLI) | payer MEDICARE, MEDICAID ==
[2020-07-30 13:31] VITALS: BP 123/73
--- NOTE | 2020-08-13 15:30 | RAD ---
PQRS Compliance Statement: One or more of the following individualized dose reduction techniques were utilized for this examination: 1. Automated exposure control 2. Adjustment of the mA and/or kV according to patient size 3. Use of iterative reconstruction technique CT abdomen/pelvis without contrast 08/13/2020 11:30 AM INDICATION: Right lower quadrant pain, swelling and mass COMPARISON: 01/29/2018 CT abdomen/pelvis TECHNIQUE: Multiple axial CT images of the abdomen and pelvis were obtained without intravenous contrast. Coronal and sagittal reformats are provided. FINDINGS: Lung bases are clear. Heart size is within normal limits. Stable simple cyst in the lateral segment left hepatic lobe measuring 1.4 cm. Evaluation of solid abdominal viscera is limited by lack of intravenous contrast. Cholecystectomy changes are present. Calcifications within the spleen likely represent sequela prior granulomatous exposure. Adrenal glands are normal in appearance. Pancreas is normal within the limitations of a noncontrast examination. Abdominal aorta is normal in course and caliber. No pathologically enlarged lymph nodes are identified in abdomen and pelvis. There is no free fluid or free intraperitoneal air. Right common femoral lymph node measures 6 mm. Mild colonic diverticulosis. Appendix is normal in appearance. No pericecal inflammatory changes. Postoperative changes are identified from gastric bypass surgery. No bowel obstruction or inflammation. Moderate to large volume stool noted throughout the colon. Kidneys are normal in appearance. No hydronephrosis or suspicious renal mass. No calculi identified within the kidneys, ureters or urinary bladder. Urinary bladder is within normal limits given degree of distention. No suspicious pelvic mass is identified. No suspicious osseous abnormality is noted. IMPRESSION: No acute abnormality is identified within the abdomen and pelvis as described in detail above. Electronically signed by: Lisbet Youssef MD (08/13/2020 3:27 PM) [facility]
== END ==
LOC: CT 10:48
PROVIDERS: ATTEND Family Medicine
DX: K57.30 Diverticulosis of large intestine without perforation or abscess without bleeding (principal); K76.89 Other specified diseases of liver
CPT/HCPCS: 74176

== ENCOUNTER 2020-10-01 14:25 | Observation (INO) | payer MEDICARE, MEDICAID ==
[~2020-10-01] VITALS: Ht 160 cm; Wt 57.2 kg
[2020-10-01 15:30] LABS: BASO % 0 % (0-3); EOS # 0.1 x10^3/uL (0.0-0.7); EOS % 1 % (0-3); HEMATOCRIT 34.2 % (36.0-47.0); LYMPH # 1.3 x10^3/uL (1.0-4.8); LYMPH % 15 % (24-48); MEAN CORPUSCULAR HEMOGLOBIN 29 pg (25-35); MEAN CORPUSCULAR HGB CONC 32 g/dL (31-37); MEAN CORPUSCULAR VOLUME 89 fL (79-100); MONO # 0.6 x10^3/uL (0.0-1.1); MONO % 7 % (0-9); NEUT # 6.5 x10^3uL (1.8-7.7); NEUT % 77 % (31-73); PLATELET COUNT 242 x10^3/uL (140-400); RED BLOOD COUNT 3.85 x10^6/uL (3.50-5.40); RED CELL DISTRIBUTION WIDTH 18.2 % (11.5-14.5); WHITE BLOOD COUNT 8.5 x10^3/uL (4.0-11.0)
[2020-10-01] MEDS ORDERED: ONDANSETRON PF 4 MG/2 ML VIAL. IVP ONE (15:30)
[2020-10-01] MEDS ORDERED: LIDOCAINE 1% PF 30 ML VIAL. INJ ONE (15:30)
[2020-10-01] MEDS ORDERED: IV NORMAL SALINE 1,000ML 1,000 ML IV ONE (15:30)
[2020-10-01 15:34] LABS: CALCIUM 8.9 mg/dL (8.5-10.1); CREATININE 0.9 mg/dL (0.6-1.0); GFR 62.6; POTASSIUM 4.2 mmol/L (3.5-5.1)
--- NOTE | 2020-10-01 15:34 | PHYS DOC ---
Past History Past Medical History: Anxiety, Depression, Hypothyroid Past Surgical History: Cholecystectomy, Gastric Bypass, Hysterectomy, Other Additional Past Surgical Histo: THYROIDECTOMY, SINUS SURGERY Alcohol Use: Occasionally Drug Use: None General Adult EDM: Chief Complaint: NAUSEA/VOMITING/DIARRHEA HPI: HPI: Patient is a 65-year-old female with complaints of dry heaving decreased p.o. intake secondary to dry heaving and diarrhea for the past month. Was seen by her primary care and had CT scans done 2 weeks ago but did not get the results. Patient states she thinks she has lost about 10 pounds, per chart review she has lost about 1 kg since last visit). Denies any fevers, cough, chest pain, shortness of breath. No lower extremity edema. Patient states she has been treated for uveitis with methotrexate also 1 week ago. Review of Systems: Review of Systems: All other systems within normal limits except for as noted in the HPI Current Medications: Current Meds: Current Medications Medications (Trade) Dose Ordered Sig/Carlos Start Time Stop Time Status Last Admin Dose Admin Lidocaine HCl (Lidocaine 1% Pf) 30 ml 1X ONCE 10/01/20 15:30 10/01/20 15:28 DC Ondansetron HCl (Zofran) 4 mg 1X ONCE 10/01/20 15:30 10/01/20 15:31 Sodium Chloride 1,000 ml @ 1,000 mls/hr 1X ONCE 10/01/20 15:30 10/01/20 16:29 Allergies: Allergies: Allergies Coded Allergies Type Severity Reaction Last Updated Verified codeine Allergy Unknown 10/01/20 Yes morphine Allergy Unknown 10/01/20 Yes Uncoded Allergies Type Severity Reaction Last Updated Verified dexatrol Allergy Unknown 01/16/18 Physical Exam: PE: Constitutional: Well developed, well nourished, no acute distress, non-toxic appearance. [] HENT: Normocephalic, atraumatic, bilateral external ears normal, nose normal. [] Eyes: PERRLA, conjunctiva normal, no discharge conjunctival pallor. [] Neck: No rigidity, supple, no stridor. [] Cardiovascular: Regular rate and rhythm, brisk cap refill [] Lungs & Thorax: Non labored symmetric respirations, no tachypnea or respiratory distress [] Abdomen: Soft, nondistended. Skin: Warm, dry, no erythema, no rash. [] Back: Unremarkable Extremities: No deformities, range of motion grossly intact, no lower extremity edema [] Neurologic: Alert and oriented X 3, no focal deficits noted. [] Psychologic: Affect normal, judgement normal, mood normal. [] Current Patient Data: Vital Signs: Vital Signs Date Time Temp Pulse Resp B/P (MAP) Pulse Ox O2 Delivery O2 Flow Rate FiO2 10/01/20 14:45 98.9 10/01/20 14:35 85 18 117/62 (80) 97 Room Air EKG: EKG: Normal sinus rhythm, heart rate 78 bpm, normal axis, no ST elevation depression, no ectopy. Normal intervals. T waves unremarkable [] Radiology/Procedures: Radiology/Procedures: [] Heart Score: Risk Factors: Risk Factors: DM, Current or recent (<one month) smoker, HTN, HLP, family history of CAD, obesity. Risk Scores: Score 0 - 3: 2.5% MACE over next 6 weeks - Discharge Home Score 4 - 6: 20.3% MACE over next 6 weeks - Admit for Clinical Observation Score 7 - 10: 72.7% MACE over next 6 weeks - Early Invasive Strategies Course & Med Decision Making: Course & Med Decision Making Pertinent Labs and Imaging studies reviewed. (See chart for details) Reviewed previous imaging that I primary care. Unremarkable. Benign abdominal exam. Discussed primary care physician Dr. Kincaid admit patient for hydration and see in the morning. [] Dragon Disclaimer: Dragon Disclaimer: This electronic medical record was generated, in whole or in part, using a voice recognition dictation system. Departure Departure: Impression: Primary Impression: Failure to thrive Additional Impressions: Diarrhea Nausea Dehydration Disposition: ADMITTED INPT THIS HOSP Admitting Physician: Charbel Kincaid Condition: STABLE Referrals: CHARBEL KINCAID MD (PCP) ALEN CHIANG MD Oct 01, 2020 15:34
[2020-10-01 15:41] LABS: ALBUMIN 3.3 g/dL (3.4-5.0); ALBUMIN/GLOBULIN RATIO 1.2 (1.0-1.7); MAGNESIUM 1.7 mg/dL (1.8-2.4); PHOSPHORUS 3.3 mg/dL (2.6-4.7); TOTAL BILIRUBIN 0.3 mg/dL (0.2-1.0); TOTAL PROTEIN 6.1 g/dL (6.4-8.2)
[2020-10-01 16:00] LABS: FECAL OB PT NEGATIVE (NEG)
--- NOTE | 2020-10-01 16:27 | EKG ---
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
[2020-10-01 17:08] LABS: BILIRUBIN,URINE NEG (NEG); CLARITY,URINE CLEAR; COLOR,URINE STRAW; GLUCOSE,URINE NEG (NEG)
[2020-10-01 17:09] LABS: BACTERIA,URINE FEW /HPF (0-FEW); NITRITE,URINE NEG (NEG); RBC,URINE OCC /HPF (0-2); SQUAMOUS EPITHELIAL CELL,UR FEW /LPF; UROBILINOGEN,URINE 0.2 mg/dL (0.2 mg/dL); WBC,URINE 0 /HPF (0-4)
[2020-10-01] MEDS: ONDANSETRON PF 4 MG/2 ML VIAL. IVP PRN (17:44)
[2020-10-01] MEDS ORDERED: traMADol 50 MG TABLET PO PRN (18:30)
[2020-10-01] MEDS ORDERED: FOLI0.8C PO (18:41)
[2020-10-01] MEDS ORDERED: METH2.5T PO (18:41)
[2020-10-01 19:05] VITALS: BP 119/67
[2020-10-01] MEDS ORDERED: ARIP5TAB13 PO (19:24)
[2020-10-01] MEDS: IV NORMAL SALINE 1,000ML 1,000 ML IV SCH (20:41)
[2020-10-01] MEDS ORDERED: SUCRALFATE 1 GM TABLET. PO SCH (21:00)
[2020-10-01] MEDS: clonazePAM 0.5 MG TABLET PO SCH (21:41)
[2020-10-01] MEDS: rOPINIRole 0.25 MG TABLET. PO SCH (21:41)
[2020-10-01 22:36] VITALS: BP 94/63
--- NOTE | 2020-10-02 01:02 | NUR ---
PT WAS ON FLOOR WHEN I ARRIVED. PTS VITALS AND BELONGING WERE OBTAINED. PT IS A&OX4 WITH COMPLAINTS OF STOMACH PAIN ON PALPATION IN RUQ. PT IS UP AD VENESSA IN ROOM.
--- NOTE | 2020-10-02 01:04 | NUR ---
PT IS BEING MONITORED Q15 MIN CHECKS AND LINE OF SIGHT DUE TO PT HAVING SUICIDAL THOUGHTS IN THE PAST 3 MONTHS AND ATTEMPTS A TEENAGER. PT DOES NOT HAVE A PLAN CURRENTLY. ALSO PT STATED SHE IS GETTING TREATMENT AT THE [facility]. PT IS CURRENTLY RESTING IN BED. WILL CONTINUE TO DOCUMENT IN 1:1 OBSERVATION INTERVENTION.
[2020-10-02] MEDS: LEVOTHYROXINE 175 MCG TABLET PO SCH (05:23)
[2020-10-02 05:57] VITALS: BP 123/75
[2020-10-02 06:30] LABS: BASO % 1 % (0-3); EOS # 0.3 x10^3/uL (0.0-0.7); EOS % 6 % (0-3); HEMATOCRIT 30.3 % (36.0-47.0); HEMOGLOBIN 9.8 g/dL (12.0-15.5); LYMPH # 2.2 x10^3/uL (1.0-4.8); LYMPH % 45 % (24-48); MEAN CORPUSCULAR HEMOGLOBIN 29 pg (25-35); MEAN CORPUSCULAR HGB CONC 32 g/dL (31-37); MEAN CORPUSCULAR VOLUME 89 fL (79-100); MONO # 0.5 x10^3/uL (0.0-1.1); MONO % 11 % (0-9); NEUT # 1.8 x10^3uL (1.8-7.7); NEUT % 37 % (31-73); PLATELET COUNT 203 x10^3/uL (140-400); RED BLOOD COUNT 3.41 x10^6/uL (3.50-5.40); RED CELL DISTRIBUTION WIDTH 17.6 % (11.5-14.5); WHITE BLOOD COUNT 4.8 x10^3/uL (4.0-11.0)
[2020-10-02 06:37] LABS: CREATININE 0.8 mg/dL (0.6-1.0); GFR 71.8
[2020-10-02] MEDS: IV NORMAL SALINE 1,000ML 1,000 ML IV SCH ×2 (07:45→13:30)
[2020-10-02] MEDS: ONDANSETRON PF 4 MG/2 ML VIAL. IVP PRN (08:37)
[2020-10-02] MEDS: ACETAMINOPHEN 325 MG TABLET PO PRN (08:38)
--- NOTE | 2020-10-02 08:47 | NUR ---
PATIENT IS NPO THIS AM DUE TO SCHEDULED TEST THEREFORE AM MEDICATIONS ARE BEING HELD WILL ADMINISTER MEDICATIONS WHEN APPROPRIATE.
[2020-10-02] MEDS ORDERED: FLUTICASONE 50MCG/NASAL SPRAY 16GM BOTTLE. NS SCH (09:00)
[2020-10-02] MEDS ORDERED: FLUCONAZOLE 100 MG TABLET. PO SCH (09:00)
[2020-10-02 10:43] VITALS: BP 150/69
[2020-10-02] MEDS: clonazePAM 0.5 MG TABLET PO SCH ×3 (11:02→21:28)
[2020-10-02] MEDS: ARIPiprazole 10 MG TABLET PO SCH (11:02)
[2020-10-02] MEDS: CITALOPRAM 20 MG TABLET. PO SCH (11:02)
[2020-10-02] MEDS: buPROPion XL 300 MG TAB.ER.24H. PO SCH (11:04)
--- NOTE | 2020-10-02 12:04 | HP ---
ADMIT DATE: 10/01/2020 HISTORY OF PRESENT ILLNESS: A 65-year-old female who came in through the Emergency Room. She has been having problems sleeping for the past month as well as having diarrhea. The patient had a CT scan done 2 weeks ago; however, the patient continues to lose weight and denies any fever, chest pain, shortness of breath; however, she is running a low-grade temperature. The patient otherwise resting fairly comfortably except for her retching. PAST MEDICAL HISTORY: Uveitis. She has been treated recently with methotrexate, sinus surgery, tonsillectomy, gastric bypass, cholecystectomy, hypothyroidism, depression, anxiety. Vaccinations unknown. FAMILY HISTORY: Mother, uterine cancer. Father dementia. ALLERGIES: Adverse reaction to CODEINE, DEXATROL AND MORPHINE. SOCIAL HISTORY: The patient used to smoke; however, it very minimal. Has not smoked for quite some time. Denies any hard drug use and is full code. REVIEW OF SYSTEMS: As noted except for the dry heaves. She denies any chest pain, shortness of breath. Denies any melena, hematochezia, hematemesis and neurologically baseline. PHYSICAL EXAMINATION: GENERAL: This is a pleasant white female. VITAL SIGNS: Blood pressure anywhere went down to 94/63, respiratory rate 20, temperature 99.5. Good oxygen saturation. LABORATORY DATA: Otherwise, her labs show white count of approximately 6 average, 10 hemoglobin. Sodium and potassium 140 and 4. BUN and creatinine stable. The CT scan of abdomen and pelvis has been read out as yet, so we will need to continue to monitor that and make further evaluation on her. Otherwise, we will continue to monitor her accordingly and make further assessment on her as noted. IMPRESSION: Dry heaves, weight loss, failure to thrive. PLAN: As above. TOÑO NEAL MD DR: DIXON/mariel JOB#: [id number] / [id number]
--- NOTE | 2020-10-02 14:31 | RAD ---
Exam performed: 2 views of the chest. Indication: Reason: TROUBLE SWALLOWING / Spl. Instructions: / History: Date of Service: 10/02/2020 2:06 PM . Comparison : One view chest from July 30, 2020 Findings: PA and lateral radiographs of the chest reveal a normal cardiomediastinal contour. The lungs are saul r. No pleural fluid is seen. The visualized osseous structures are unremarkable. Impression: No acute cardiopulmonary process seen. Electronically signed by: Dionne Michael MD (10/02/2020 2:29 PM) [facility]
[2020-10-02 14:41] VITALS: BP 129/81
--- NOTE | 2020-10-02 14:44 | RAD ---
Exam: CT abdomen/pelvis without contrast Indication: Nausea vomiting diarrhea for one month. Comparison: CT abdomen pelvis 08/13/2020 Technique: Helical CT imaging performed of the abdomen and pelvis without contrast. Sagittal and roly nal reformats were obtained. One or more of the following individualized dose reduction techniques were utilized for this examinat ion: 1. Automated exposure control 2. Adjustment of the mA and/or kV according to patient size 3. Use of iterative reconstruction technique. Findings: Lower chest: There is an incompletely visualized 1.6 x 1.5 cm nodule in the paramediastinal right low er lobe (image 1 series 2). Heart size normal. Liver: Normal size. There is a 1.5 cm simple cyst in the left hepatic lobe, unchanged. Gallbladder/Biliary Tree: There are cholecystectomy clips. The common bile duct is dilated measuring 1.6 cm, unchanged. Pancreas: Normal. Spleen: Calcified splenic granulomas. Adrenal Glands: Normal. Kidneys/Ureters/Bladder: Kidneys are normal in size. No hydronephrosis or nephrolithiasis. Ureters an d urinary bladder are unremarkable. Reproductive Organs: Uterus is surgically absent. No adnexal mass. Stomach, small bowel, and colon: There are surgical changes of gastric bypass. Gastrojejunostomy is p atent. No small bowel obstruction. The colon is normal. Vasculature: Abdominal aorta is normal in caliber with mild calcified atherosclerosis. Lymph Nodes: No lymphadenopathy. Peritoneum and retroperitoneum: There is no free fluid or free air. Bones: Moderate degenerative disc disease at L4-5. Miscellaneous: No acute abnormality. Impression: 1. No acute abnormality in the abdomen or pelvis. 2. 6 cm incompletely visualized nodule in the paramediastinal right lower lobe. Recommend dedicated CT of the chest to fully evaluate. 3. Post cholecystectomy. Unchanged dilation of the main common bile duct. 4. Surgical changes of gastric bypass. Electronically signed by: Corry Cannon MD (10/02/2020 2:41 PM) [id number]
[2020-10-02 20:19] VITALS: BP 137/77
[2020-10-02] MEDS: rOPINIRole 0.25 MG TABLET. PO SCH (21:28)
[2020-10-03 00:05] VITALS: BP 113/67
[2020-10-03 05:28] VITALS: BP 129/76
[2020-10-03] MEDS: LEVOTHYROXINE 175 MCG TABLET PO SCH (05:39)
[2020-10-03] MEDS: buPROPion XL 300 MG TAB.ER.24H. PO SCH (08:21)
[2020-10-03] MEDS: CITALOPRAM 20 MG TABLET. PO SCH (08:21)
[2020-10-03] MEDS: ARIPiprazole 10 MG TABLET PO SCH (08:21)
[2020-10-03] MEDS: clonazePAM 0.5 MG TABLET PO SCH (08:21)
[2020-10-03 10:12] LABS: BASO # 0.1 x10^3/uL (0.0-0.2); BASO % 1 % (0-3); EOS # 0.2 x10^3/uL (0.0-0.7); EOS % 5 % (0-3); HEMATOCRIT 31.9 % (36.0-47.0); HEMOGLOBIN 10.4 g/dL (12.0-15.5); LYMPH # 1.7 x10^3/uL (1.0-4.8); LYMPH % 38 % (24-48); MEAN CORPUSCULAR HEMOGLOBIN 29 pg (25-35); MEAN CORPUSCULAR HGB CONC 33 g/dL (31-37); MEAN CORPUSCULAR VOLUME 88 fL (79-100); MONO # 0.4 x10^3/uL (0.0-1.1); MONO % 10 % (0-9); NEUT # 2.1 x10^3uL (1.8-7.7); NEUT % 46 % (31-73); PLATELET COUNT 229 x10^3/uL (140-400); RED BLOOD COUNT 3.64 x10^6/uL (3.50-5.40); RED CELL DISTRIBUTION WIDTH 17.6 % (11.5-14.5); WHITE BLOOD COUNT 4.5 x10^3/uL (4.0-11.0)
[2020-10-03 10:19] LABS: CALCIUM 8.4 mg/dL (8.5-10.1); CREATININE 0.8 mg/dL (0.6-1.0); GFR 71.8; POTASSIUM 4.1 mmol/L (3.5-5.1)
[2020-10-03] MEDS ORDERED: ONDANSETRON PF 4 MG/2 ML VIAL. IVP PRN (11:00)
[2020-10-03] MEDS: ACETAMINOPHEN 325 MG TABLET PO PRN (11:06)
[2020-10-03] MEDS ORDERED: ONDA4TAB12 PO (11:53)
[2020-10-03] MEDS ORDERED: ARIP20TA5 PO (11:53)
--- NOTE | 2020-10-03 12:30 | DS ---
DATE OF DISCHARGE: HOSPITAL COURSE: The patient came in through the Emergency Room. The patient was having problems keeping anything down. She has been attempted to be treated as an outpatient, but continued to have severe retching as she called it. The patient was unable to keep fluids down and as a result of this, the patient became increasingly dehydrated and so, she was admitted for administration of IV fluids hydration and further evaluation as indicated. The patient's CT scan of the abdomen and pelvis did show 6 cm incomplete visualized nodule in the paramediastinal right lower lobe. Follow up as an outpatient for CT scan post-cholecystectomy and of course history of gastric bypass. The patient's hemoglobin and hematocrit was low at 10 and 31, white count 4.5. Sodium and potassium 140 and 4.1, BUN and creatinine 4 and 0.8. Blood sugars vacillated, moderate protein malnutrition. She is slightly hyperthyroid. IMPRESSION: Therefore, retching, abdominal pain, dehydration, weight loss, failure to thrive mass in the right lower lobe of the lung. TOÑO NEAL MD DR: DIXON/mariel JOB#: [id number] / [id number]
--- NOTE | 2020-10-03 13:10 | NUR ---
PATIENT IS DISCHARGED HOME WITH SELF CARE. PATIENT IS STABLE AT TIME OF DISCHARGE. PTS IV IS REMOVED AND PATIENT IS GIVEN ALL DISCHARGE AND FOLLOW UP INSTRUCTIONS PROVIDED TO PT. PTS HAS ALL BELONGINGS WITH SELF AT TIME OT DISCHARGE. PT AMBULATED OFF OF UNIT ACCOMPANIED BY STAFF.
== END 2020-10-03 13:10 | disposition home or self-care (01) ==
LOC: ER 14:25 → 1 SOUTH 17:25 → INTOOBSV 17:25
PROVIDERS: ADMIT Family Medicine; ATTEND Family Medicine
DX: R62.7 Adult failure to thrive (principal); E86.0 Dehydration; E44.0 Moderate protein-calorie malnutrition; E89.0 Postprocedural hypothyroidism; F41.9 Anxiety disorder, unspecified; R63.4 Abnormal weight loss; R91.8 Other nonspecific abnormal finding of lung field; F32.9 Major depressive disorder, single episode, unspecified; Z87.891 Personal history of nicotine dependence; Z90.710 Acquired absence of both cervix and uterus; Z98.84 Bariatric surgery status; Z68.22 Body mass index [BMI] 22.0-22.9, adult; Z90.49 Acquired absence of other specified parts of digestive tract; Z98.890 Other specified postprocedural states
CPT/HCPCS: 36415; 71046; 74176; 80048; 80053; 81001; 82274; 83690; 83735; 83880; 84100; 84443; 84484; 85025; 93005; 96361; 96374; 96376; 99285; G0378; J2405; J7030; G0379

== ENCOUNTER → 2020-10-18 | Outpatient (CLI) | payer MEDICARE, MEDICAID ==
[2020-10-03 05:28] VITALS: BP 129/76
[~2020-10-18] MED LIST changes: +ARIP5TAB13 PO; +FOLI0.8C PO; +METH2.5T PO; +ONDA4TAB12 PO
--- NOTE | 2020-10-18 16:06 | RAD ---
EXAM: CT Chest without IV contrast INDICATION: Reason: ABNORMAL FINDINGS / Spl. Instructions: / History: TECHNIQUE: Multi-detector row CT images were acquired from the thoracic inlet through the upper abdo men without the use of IV contrast. Sagittal and coronal images were acquired from the transaxial damian a. All CT scans performed at this facility utilize dose optimization techniques as appropriate to the exam, including the following: Automated exposure control and adjustment of the mA and/or KV accordi ng to patient size (this includes techniques or standardized protocols for targeted exams where dose is indication/reason for exam). COMPARISON: Abdomen CT of 10/02/2020 FINDINGS: The absence of IV contrast limits evaluation of soft tissue pathology. CARDIOVASCULAR: Unremarkable MEDIASTINUM & NELIA: No adenopathy or masses. LUNGS: No pulmonary infiltrate, nodule, or other focal abnormality. Calcified nodules in the left upp er lobe are present. The questioned partially imaged 1.6 cm nodule in the paramediastinal right lower lobe on further imaging reflects volume averaging artifact from the left inferior pulmonary vein. PLEURAL SPACE: No pleural effusions or pneumothorax. OSSEOUS & SOFT TISSUE: Unremarkable ABDOMEN: 1.4 cm low-density lesion in the left hepatic lobe is unchanged and statistically likely to be a cyst. Posturgical changes in the stomach compatible with previous gastric bypass and postcholec ystectomy surgical changes are noted. IMPRESSION: No suspicious lung nodules or masses. Previous right lower lung abnormality suspected to be a pulmona ry nodule on abdominal CT represents a portion of the patient's right inferior pulmonary vein. If the patient is considered at high risk for lung cancer, consider enrolling her in a formal CT lung cance r screening program. Electronically signed by: Alessandra Francis MD (10/18/2020 4:04 PM) [id number]
== END ==
LOC: CT 10:49
PROVIDERS: ATTEND Family Medicine
DX: R93.89 Abnormal findings on diagnostic imaging of other specified body structures (principal); R11.0 Nausea
CPT/HCPCS: 71250

== ENCOUNTER → 2020-11-07 | Outpatient (CLI) | payer MEDICARE, MEDICAID ==
[2020-11-07 15:05] LABS: ALBUMIN 3.5 g/dL (3.4-5.0); CALCIUM 9.1 mg/dL (8.5-10.1); CREATININE 0.8 mg/dL (0.6-1.0); GFR 71.8; POTASSIUM 4.3 mmol/L (3.5-5.1); TOTAL BILIRUBIN 0.4 mg/dL (0.2-1.0)
== END ==
LOC: LAB 13:39
PROVIDERS: ATTEND Internal Medicine Gastroenterology
DX: R11.0 Nausea (principal)
CPT/HCPCS: 36415; 80053; 82150; 83690

== ENCOUNTER → 2021-01-29 | Outpatient (CLI) | payer MEDICARE, MEDICAID ==
[2021-01-29 09:12] LABS: BASO % 1 % (0-3); EOS # 0.2 x10^3/uL (0.0-0.7); EOS % 6 % (0-3); HEMATOCRIT 35.9 % (36.0-47.0); HEMOGLOBIN 11.5 g/dL (12.0-15.5); LYMPH # 1.6 x10^3/uL (1.0-4.8); LYMPH % 42 % (24-48); MEAN CORPUSCULAR HEMOGLOBIN 30 pg (25-35); MEAN CORPUSCULAR HGB CONC 32 g/dL (31-37); MEAN CORPUSCULAR VOLUME 92 fL (79-100); MONO # 0.4 x10^3/uL (0.0-1.1); MONO % 10 % (0-9); NEUT # 1.6 x10^3uL (1.8-7.7); NEUT % 41 % (31-73); PLATELET COUNT 246 x10^3/uL (140-400); RED CELL DISTRIBUTION WIDTH 17.3 % (11.5-14.5); WHITE BLOOD COUNT 3.8 x10^3/uL (4.0-11.0)
[2021-01-29 09:20] LABS: ALBUMIN 3.6 g/dL (3.4-5.0); ALBUMIN/GLOBULIN RATIO 1.1 (1.0-1.7); CALCIUM 8.9 mg/dL (8.5-10.1); CREATININE 0.8 mg/dL (0.6-1.0); GFR 71.8; POTASSIUM 4.1 mmol/L (3.5-5.1); TOTAL BILIRUBIN 0.6 mg/dL (0.2-1.0)
[2021-01-29 22:14] LABS: FREE T4 1.54 ng/dL (0.76-1.46); HDLC 86 mg/dL (40-60); LDLC 103 mg/dL (0-100); TRIGLYCERIDES 65 mg/dL (0-150); VLDLC 13 mg/dL (0-40)
[2021-01-29 22:15] LABS: THYROID STIM HORMONE (TSH) < 0.007 uIU/mL (0.358-3.740)
[2021-01-30 00:13] LABS: HEMOGLOBIN A1C 5.9 % (4.8-5.6)
== END ==
LOC: LAB 08:30
PROVIDERS: ATTEND Physician Assistant
DX: Z79.899 Other long term (current) drug therapy (principal)
CPT/HCPCS: 36415; 80053; 80061; 82306; 83036; 84439; 84443; 84480; 85025

== ENCOUNTER → 2021-02-21 | Outpatient (CLI) | payer MEDICARE, MEDICAID ==
[~2021-02-21] MED LIST changes: +IOHEXOL 240 MG/ML 50ML VIAL. ONE; +IOHEXOL 300 MG/ML 75 ML VIAL. IV ONE
--- NOTE | 2021-02-21 15:49 | RAD ---
PQRS Compliance Statement: One or more of the following individualized dose reduction techniques were utilized for this examinat ion: 1. Automated exposure control 2. Adjustment of the mA and/or kV according to patient size 3. Use of iterative reconstruction technique CT abdomen/pelvis with contrast 02/21/2021 9:15 AM INDICATION: Abdominal pain with history of gastric bypass and cholecystectomy. COMPARISON: CT abdomen/pelvis 10/02/2020 TECHNIQUE: Multiple axial CT images of the abdomen and pelvis were obtained after the intravenous adm inistration of 75 mL Omnipaque 300. Coronal and sagittal reformats are provided. FINDINGS: Lung bases are clear. Heart size within normal limits. Stable hypoattenuating lesion within lateral s egment left hepatic lobe measuring 1.5 cm (12 Hounsfield units) suggestive of a simple cyst. Portal v enous system appears widely patent. Cholecystectomy changes are present. Common bile duct measures 1. 2 cm, stable from prior examination. Calcifications within the spleen likely represent sequela prior granulomatous exposure. Adrenal glands are normal in appearance. Limited evaluation of the pancreas s econdary to lack of intraperitoneal fat. No suspicious pancreatic mass is identified abdominal aorta is normal in course and caliber with moderate calcified atheromatous plaque. No pathologically enlarg ed lymph nodes are identified in the abdomen and pelvis. There is no free fluid or free intraperitone al air. The kidneys enhance symmetrically. There is no suspicious renal mass. There is no hydronephro sis. There are no suspected calculi within the kidneys, ureters or urinary bladder. Urinary bladder i s within normal limits given degree of distention. No suspicious pelvic mass. Postoperative changes are identified from gastric bypass surgery. Gastrojejunostomy changes are prese nt without adjacent inflammation. Oral contrast was administered. Opacified bowel loops since her nor mal mucosal fold pattern. No bowel obstruction or inflammation is identified. Small large bowel are n ormal in caliber. Small amount stool identified within the rectum. No suspicious osseous abnormality is identified. Mild anterolisthesis of L3 on L4 retrolisthesis of L4 on L5. Laminectomy changes ident ified. IMPRESSION: No acute abnormality is identified in the abdomen and pelvis. Gastric bypass postsurgical changes without evidence for bowel obstruction or inflammation. Cholecystectomy changes with dilatation of common bile duct which could reflect reservoir effect stat us post cholecystectomy. Electronically signed by: Lisbet Youssef MD (02/21/2021 3:47 PM) [id number]
== END ==
LOC: CT 09:07
PROVIDERS: ATTEND Internal Medicine Gastroenterology
DX: R10.9 Unspecified abdominal pain (principal); Z90.49 Acquired absence of other specified parts of digestive tract
CPT/HCPCS: 74177; Q9967

== ENCOUNTER 2022-01-29 14:52 | Emergency (ER) | payer MEDICARE, MEDICAID ==
[~2022-01-29] VITALS: Ht 160 cm; Wt 55.5 kg
[~2022-01-29 14:52] MED LIST changes: -FLUC100T4 PO; +FLUC100T6 PO; -IOHEXOL 240 MG/ML 50ML VIAL. ONE; -IOHEXOL 300 MG/ML 75 ML VIAL. IV ONE
[2022-01-29] MEDS ORDERED: PANTOPRAZOLE IV 40 MG VIAL. IVP ONE (15:45)
[2022-01-29] MEDS ORDERED: IV NORMAL SALINE 1,000ML 1,000 ML IV ONE (15:45)
--- NOTE | 2022-01-29 15:47 | PHYS DOC ---
Past History Past Medical History: Anxiety, Depression, Hypothyroid Past Surgical History: Cholecystectomy, Gastric Bypass, Hysterectomy, Other Additional Past Surgical Histo: THYROIDECTOMY, SINUS SURGERY Alcohol Use: Occasionally Drug Use: None General Adult EDM: Chief Complaint: RECTAL BLEED HPI: HPI: 66-year-old female presents with rectal bleeding. Patient states that it started last night. It is dark in color. She has had a GI bleed in the past that required transfusion. The definitive source of this bleed was never discovered. Patient states that she has 3 known ulcers and takes 40 mg of Protonix daily. She is not currently dizzy or short of breath. She denies fever or chills. Review of Systems: Review of Systems: Constitutional: Denies fever or chills Eyes: Denies change in visual acuity HENT: Denies nasal congestion or sore throat Respiratory: Denies cough or shortness of breath Cardiovascular: Denies chest pain or edema GI: Rectal bleeding : Denies dysuria Musculoskeletal: Denies back pain or joint pain Integument: Denies rash Neurologic: Denies headache, focal weakness or sensory changes Endocrine: Denies polyuria or polydipsia Lymphatic: Denies swollen glands Psychiatric: Denies depression or anxiety Current Medications: Current Meds: Current Medications Medications (Trade) Dose Ordered Sig/Carlos Start Time Stop Time Status Last Admin Dose Admin Pantoprazole Sodium (Protonix Vial) 80 mg 1X ONCE 01/29/22 15:45 01/29/22 15:46 UNV Sodium Chloride 1,000 ml @ 1,000 mls/hr 1X ONCE 01/29/22 15:45 01/29/22 16:44 UNV Allergies: Allergies: Allergies Coded Allergies Type Severity Reaction Last Updated Verified codeine Allergy Unknown 10/01/20 Yes morphine Allergy Unknown 10/01/20 Yes Uncoded Allergies Type Severity Reaction Last Updated Verified dexatrol Allergy Unknown 01/16/18 Physical Exam: PE: Constitutional: Well developed, well nourished, no acute distress, non-toxic appearance. [] HENT: Normocephalic, atraumatic, bilateral external ears normal, oropharynx moist, no oral exudates, nose normal. [] Eyes: PERRLA, EOMI, conjunctiva normal, no discharge. [] Neck: Normal range of motion, no tenderness, supple, no stridor. [] Cardiovascular:Heart rate regular rhythm, no murmur [] Lungs & Thorax: Bilateral breath sounds clear to auscultation [] Abdomen: Bowel sounds normal, soft, no tenderness, no masses, no pulsatile masses. [] Skin: Warm, dry, no erythema, no rash. [] Back: No tenderness, no CVA tenderness. [] Extremities: No tenderness, no cyanosis, no clubbing, ROM intact, no edema. [] Neurologic: Alert and oriented X 3, normal motor function, normal sensory function, no focal deficits noted. [] Psychologic: Affect normal, judgement normal, mood normal. [] EKG: EKG: [] Radiology/Procedures: Radiology/Procedures: [] Heart Score: C/O Chest Pain: N/A Risk Factors: Risk Factors: DM, Current or recent (<one month) smoker, HTN, HLP, family history of CAD, obesity. Risk Scores: Score 0 - 3: 2.5% MACE over next 6 weeks - Discharge Home Score 4 - 6: 20.3% MACE over next 6 weeks - Admit for Clinical Observation Score 7 - 10: 72.7% MACE over next 6 weeks - Early Invasive Strategies Course & Med Decision Making: Course & Med Decision Making Pertinent Labs and Imaging studies reviewed. (See chart for details) The patient's Hemoccult sample appears to be dark blood. I have given her a liter normal saline and 80 mg Protonix IV. Her hemoglobin is 7.3. I discussed with the patient the need to transfer her to a facility with GI coverage. She is in agreement with this plan. We have paged the hospitalist at [facility]. I spoke with Dr. Arriola and he has accepted the patient for transfer and admission. [] Gema Disclaimer: Gema Disclaimer: This electronic medical record was generated, in whole or in part, using a voice recognition dictation system. Departure Departure: Referrals: TOÑO NEAL MD (PCP) ESTHER WATERS DO January 29, 2022 15:47
[2022-01-29 15:54] LABS: BASO # 0.1 x10^3/uL (0.0-0.2); BASO % 1 % (0-3); EOS % 1 % (0-3); HEMOGLOBIN 7.3 g/dL (12.0-15.5); LYMPH % 32 % (24-48); MEAN CORPUSCULAR HEMOGLOBIN 30 pg (25-35); MEAN CORPUSCULAR HGB CONC 33 g/dL (31-37); MEAN CORPUSCULAR VOLUME 89 fL (79-100); MONO # 0.5 x10^3/uL (0.0-1.1); MONO % 9 % (0-9); NEUT # 3.7 x10^3uL (1.8-7.7); NEUT % 58 % (31-73); PLATELET COUNT 303 x10^3/uL (140-400); RED BLOOD COUNT 2.48 x10^6/uL (3.50-5.40); RED CELL DISTRIBUTION WIDTH 18.2 % (11.5-14.5); WHITE BLOOD COUNT 6.4 x10^3/uL (4.0-11.0)
[2022-01-29 15:59] LABS: CALCIUM 8.7 mg/dL (8.5-10.1); CREATININE 0.9 mg/dL (0.6-1.0); GFR 62.5; POTASSIUM 3.7 mmol/L (3.5-5.1)
[2022-01-29 16:05] LABS: ALBUMIN/GLOBULIN RATIO 1.1 (1.0-1.7); TOTAL BILIRUBIN 0.3 mg/dL (0.2-1.0); TOTAL PROTEIN 5.8 g/dL (6.4-8.2)
[2022-01-29 16:24] LABS: FECAL OB PT POSITIVE (NEG)
[2022-01-29 17:21] VITALS: BP 117/69
[2022-01-29 17:53] LABS: BACTERIA,URINE 0 /HPF (0-FEW); CLARITY,URINE CLEAR; COLOR,URINE YELLOW; GLUCOSE,URINE NEG (NEG); NITRITE,URINE NEG (NEG); RBC,URINE OCC /HPF (0-2); SQUAMOUS EPITHELIAL CELL,UR OCC /LPF; UROBILINOGEN,URINE 0.2 mg/dL (0.2 mg/dL); WBC,URINE OCC /HPF (0-4)
== END 2022-01-29 17:47 | disposition short-term general hospital (02) ==
LOC: ER 14:52
DX: K62.5 Hemorrhage of anus and rectum (principal); F41.9 Anxiety disorder, unspecified; F32.9 Major depressive disorder, single episode, unspecified; E03.9 Hypothyroidism, unspecified; Z90.49 Acquired absence of other specified parts of digestive tract; Z98.84 Bariatric surgery status; Z90.710 Acquired absence of both cervix and uterus; Z88.5 Allergy status to narcotic agent
CPT/HCPCS: 36415; 80053; 81001; 82274; 85025; 86850; 86900; 86901; 96361; 96374; 99285; C9113; J7030